=== PATIENT | male | born 1950 | race Caucasian/White ===

== ENCOUNTER → 2020-03-21 | Outpatient (CLI) | payer MEDICARE, OTHER ==
[~2020-03-21] MED LIST: ACET250T2 PO; CBD MM; CLOM50TA17 PO; KETONE PO; MAGN100T6 PO; MELA5TAB14 PO; VIT1CAPS42 PO
== END | disposition home or self-care (01) ==
LOC: STAR 11:09
PROVIDERS: ATTEND Urology
DX: Z01.818 Encounter for other preprocedural examination (principal); N20.0 Calculus of kidney
CPT/HCPCS: 93005

== ENCOUNTER 2020-03-27 10:11 | Day surgery (SDC) | payer MEDICARE, OTHER ==
[~2020-03-27] VITALS: Ht 179.1 cm; Wt 106.8 kg
[2020-03-27] MEDS ORDERED: LACTATED RINGERS 1,000 ML IV SCH (10:42)
[2020-03-27] MEDS ORDERED: VITA15LO2 PO (10:45)
[2020-03-27] MEDS ORDERED: CHLORHEXIDINE 15 ML UDC ONE (10:48)
[2020-03-27 10:53] VITALS: BP 136/88
[2020-03-27] MEDS ORDERED: CHLORHEXIDINE 15 ML UDC MM ONE (11:00)
[2020-03-27] MEDS ORDERED: LIDOCAINE-MPF 1%, 2ML INFIL ONE (11:00)
[2020-03-27] MEDS ORDERED: FENTANYL PF 250 MCG/5ML ONE (13:00)
[2020-03-27] MEDS ORDERED: MIDAZOLAM 1 MG/ML, 2ML ONE (13:00)
[2020-03-27] MEDS ORDERED: DEXAMETHASONE 4 MG/ML, 1ML ONE (13:03)
[2020-03-27] MEDS ORDERED: SUCCINYLCHOLINE 20 MG/ML, 10ML ONE (13:03)
[2020-03-27] MEDS ORDERED: HYDROmorphone 1 MG/ML, 1ML INJ IVPush PRN (14:00)
[2020-03-27] MEDS ORDERED: OXYcodone 5 MG/5 ML ORAL.SOL UDC PO PRN (14:00)
[2020-03-27] MEDS ORDERED: LABETALOL 5MG/ML, 20ML IV PRN (14:00)
[2020-03-27] MEDS ORDERED: hydrALAzine 20 MG/ML, 1ML IV PRN (14:00)
[2020-03-27] MEDS ORDERED: DIPHENHYDRAMINE 50 MG/ML, 1ML IVPush PRN (14:00)
[2020-03-27] MEDS ORDERED: EPHEDRINE 50 MG/ML, 1ML IVPush PRN (14:00)
[2020-03-27] MEDS ORDERED: ACETAMINOPHEN 325 MG TABLET PO PRN (14:00)
[2020-03-27] MEDS ORDERED: DIAZEPAM 5 MG/ML, 2ML IVPush PRN (14:00)
[2020-03-27] MEDS ORDERED: PROMETHAZINE 25 MG/ML, 1ML IVPush PRN (14:00)
[2020-03-27] MEDS ORDERED: MEPERIDINE/PF 25MG/0.5ML IVPush PRN (14:00)
[2020-03-27] MEDS ORDERED: PROMETHAZINE 25 MG SUPP PR PRN (14:00)
[2020-03-27] MEDS ORDERED: FENTANYL PF 100 MCG/2ML IV PRN (14:00)
[2020-03-27] MEDS ORDERED: ONDANSETRON 2MG/ML, 2ML IVPush PRN (14:00)
[2020-03-27] MEDS ORDERED: MIDAZOLAM 1 MG/ML, 2ML IV PRN (14:00)
[2020-03-27] MEDS ORDERED: PROMETHAZINE 12.5 MG SUPP PR PRN (14:00)
[2020-03-27] MEDS ORDERED: ALBUTEROL SULFATE 2.5 MG/3 ML NPPB PRN (14:00)
[2020-03-27] MEDS ORDERED: ROCURONIUM 10MG/ML,5ML ONE (14:34)
[2020-03-27] MEDS ORDERED: ONDANSETRON 2MG/ML, 2ML ONE ×2 (14:34)
[2020-03-27] MEDS ORDERED: PROPOFOL 10 MG/ML, 20ML ONE (14:34)
[2020-03-27] MEDS ORDERED: PROMETHAZINE 25 MG/ML, 1ML ONE (15:50)
== END 2020-03-27 18:05 | disposition home or self-care (01) ==
LOC: OUT 10:11
PROVIDERS: ATTEND Urology
DX: N20.0 Calculus of kidney (principal); E29.1 Testicular hypofunction; N52.9 Male erectile dysfunction, unspecified; E66.9 Obesity, unspecified; Z68.33 Body mass index [BMI] 33.0-33.9, adult; Z79.899 Other long term (current) drug therapy; Z91.013 Allergy to seafood; Z98.890 Other specified postprocedural states
CPT/HCPCS: 50590; 82962; J0330; J1100; J2250; J2405; J2550; J2704; J3010; J7120